=== PATIENT | male | born 1990 | race Caucasian/White ===

== ENCOUNTER → 2017-03-02 | Outpatient (REF) | payer OTHER ==
[~2017-03-02] MED LIST: /ONDA4TA JT; AUGM875T27 PO; AVAP150T PO; BACT800T5 PO; CLIN300C PO; NORC5TAB PO; PERCOCET PO
== END ==
LOC: M LAB REF 09:39
PROVIDERS: ATTEND Physician Assistant
DX: J02.9 Acute pharyngitis, unspecified (principal)

== ENCOUNTER → 2018-08-22 | Outpatient (REF) | payer BC | LOC: M LAB REF 13:16 | DX: J02.9 Acute pharyngitis, unspecified (principal) ==

== ENCOUNTER → 2022-07-11 | Outpatient (CLI) | payer BC ==
[~2022-07-11] MED LIST changes: -/ONDA4TA JT; +ONDA-1 JT; +OXYC1TAB23 PO; -PERCOCET PO
[2022-07-11 12:48] LABS: BASO % 0.5 % (0.0-1.0); EOS # 0.2 10^3/uL (0.0-0.5); EOS % 3.9 % (0.0-3.0); HEMATOCRIT 47.2 % (42.0-52.0); HEMOGLOBIN 15.4 g/dl (13.5-17.5); LYMPH # 1.7 10^3/uL (1.5-5.0); LYMPH % 30.1 % (24.0-44.0); MEAN CORPUSCULAR HEMOGLOBIN 29.2 pg (27.0-33.0); MEAN CORPUSCULAR HGB CONC 32.6 g/dl (32.0-36.5); MEAN CORPUSCULAR VOLUME 89.6 fl (80.0-96.0); MONO # 0.5 10^3/uL (0.0-0.8); MONO % 8.6 % (2.0-8.0); NEUTROPHILS # 3.2 10^3/uL (1.5-8.5); NEUTROPHILS % 56.7 % (36.0-66.0); PLATELET COUNT, AUTOMATED 226 10^3/uL (150-450); RED BLOOD COUNT 5.27 10^6/uL (4.30-6.10); WHITE BLOOD COUNT 5.7 10^3/uL (4.0-10.0)
[2022-07-11 13:10] LABS: HEMOGLOBIN A1c 5.2 %
[2022-07-11 13:38] LABS: ALBUMIN 4.3 GM/DL (3.2-5.2); ALT/SGPT 84 U/L (12-78); BILIRUBIN,TOTAL 0.5 MG/DL (0.2-1.0); BLOOD UREA NITROGEN 11 MG/DL (7-18); CALCIUM LEVEL 9.2 MG/DL (8.5-10.1); CARBON DIOXIDE LEVEL 28 MEQ/L (21-32); CHLORIDE LEVEL 105 MEQ/L (98-107); CHOLESTEROL LEVEL 189 MG/DL (<200); CHOLESTEROL RISK RATIO 5.108 (<5); CREATININE FOR GFR 0.97 MG/DL (0.70-1.30); FREE T4 0.89 NG/DL (0.76-1.46); GLOMERULAR FILTRATION RATE > 60.0 (>60); GLUCOSE, FASTING 100 MG/DL (70-100); HDL CHOLESTEROL 37 MG/DL (>40); LDL CHOLESTEROL 128 MG/DL (<100); NON-HDL-C 152 MG/DL; POTASSIUM SERUM 4.4 MEQ/L (3.5-5.1); SODIUM LEVEL 138 MEQ/L (136-145); THYROID STIMULATING HORMONE 0.952 uIU/ML (0.358-3.740); TOTAL PROTEIN 7.8 GM/DL (6.4-8.2); TRIGLYCERIDES LEVEL 119 MG/DL (<150)
[2022-07-11 14:06] LABS: TOTAL 25(OH) VITAMIN D 22.4 NG/ML (30.0-100.0)
== END ==
LOC: M LABDRWAD 07:45
PROVIDERS: ATTEND Physician Assistant
DX: Z13.29 Encounter for screening for other suspected endocrine disorder (principal)

== ENCOUNTER → 2022-09-13 | Outpatient (CLI) | payer BC | LOC: M SLEEP HO 14:22 | PROVIDERS: ATTEND Physician Assistant | DX: G47.10 Hypersomnia, unspecified (principal) ==

== ENCOUNTER 2023-01-14 08:33 | Emergency (ER) | payer BC ==
[~2023-01-14] VITALS: Ht 193 cm; Wt 185.3 kg
[2023-01-14] MEDS ORDERED: VALS320T2 PO (08:44)
[2023-01-14] MEDS ORDERED: KETOROLAC 60MG 2ML VIAL IM ONE (09:50)
[2023-01-14] MEDS ORDERED: diazePAM 5MG TABLET PO ONE (09:50)
[2023-01-14] MEDS ORDERED: LIDOCAINE 5% (LIDODERM) PATCH TD ONE (09:50)
[2023-01-14] MEDS ORDERED: LIDO5DIS41 TOP (11:16)
[2023-01-14 11:22] VITALS: BP 121/75
== END 2023-01-14 11:30 | disposition home or self-care (01) ==
LOC: M ED 08:33
DX: M51.26 Other intervertebral disc displacement, lumbar region (principal); M51.24 Other intervertebral disc displacement, thoracic region; M48.061 Spinal stenosis, lumbar region without neurogenic claudication; I10 Essential (primary) hypertension; Z88.8 Allergy status to other drugs, medicaments and biological substances; Z79.899 Other long term (current) drug therapy
CPT/HCPCS: 72131; 96372; 99283; J1885

== ENCOUNTER 2024-03-09 10:42 | Emergency (ER) | payer BC ==
[~2024-03-09] VITALS: Ht 193 cm; Wt 188.0 kg
[~2024-03-09 10:42] MED LIST changes: +LIDO5DIS41 TOP; +VALS320T2 PO
[2024-03-09] MEDS ORDERED: VALA1TAB5 (10:49)
[2024-03-09] MEDS: PROPARACAINE 0.5% OPHTH SOL 15ML OU ONE (11:18)
[2024-03-09] MEDS: FLUORESCEIN OPHTH 1MG STRIP OU ONE (11:18)
[2024-03-09] MEDS: NS 1,000 ML IV ONE (12:00)
[2024-03-09] MEDS: KETOROLAC 30 MG/ML 1ML VIAL IV ONE (12:00)
[2024-03-09] MEDS: methylPREDNISolone 125MG 2ML VIAL IV ONE (12:00)
[2024-03-09] MEDS: ERYTHROMYCIN OPHTH OINT OD ONE (12:37)
[2024-03-09] MEDS ORDERED: ERYT5OIN25 OD (13:03)
[2024-03-09 13:22] VITALS: BP 142/80; TEMP 98.2; O2SAT 96
== END 2024-03-09 13:33 | disposition home or self-care (01) ==
LOC: M ED 10:42
DX: B02.39 Other herpes zoster eye disease (principal); I10 Essential (primary) hypertension; F17.200 Nicotine dependence, unspecified, uncomplicated; F10.10 Alcohol abuse, uncomplicated; Z88.8 Allergy status to other drugs, medicaments and biological substances; Z79.2 Long term (current) use of antibiotics; Z79.899 Other long term (current) drug therapy
CPT/HCPCS: 96361; 96374; 99284; J1885; J2919